=== PATIENT | male | born 1950 | race Caucasian/White ===

== ENCOUNTER 2019-04-27 13:14 | Emergency (ER) | payer OTHER ==
[2019-04-27] MEDS ORDERED: DIPHTH,PERTUSS(ACELL),TET 0.5 ML DISP.SYRIN IM ONE ×3 (14:17→15:08)
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
[2019-04-27] MEDS ORDERED: ACETAMINOPHEN 325 MG TABLET (FP) PO ONE (14:58)
[2019-04-27 15:30] VITALS: BP 140/75; PULSE 82; TEMP 98.1; BMI 22.7
== END 2019-04-27 15:41 | disposition home or self-care (01) ==
LOC: JER 13:14
PROC: 3E0234Z Introduction of Serum, Toxoid and Vaccine into Muscle, Percutaneous Approach (ICD-10-PCS; principal; 2019-04-27)
DX: S00.81XA Abrasion of other part of head, initial encounter (principal); Y04.2XXA Assault by strike against or bumped into by another person, initial encounter; Y93.89 Activity, other specified; Y92.512 Supermarket, store or market as the place of occurrence of the external cause; Y99.8 Other external cause status; G40.909 Epilepsy, unspecified, not intractable, without status epilepticus; F03.90 Unspecified dementia, unspecified severity, without behavioral disturbance, psychotic disturbance, mood disturbance, and anxiety; F10.11 Alcohol abuse, in remission
CPT/HCPCS: 70450-TC; 90715; 99281-25

== ENCOUNTER 2020-07-16 17:03 | Emergency (ER) | payer OTHER ==
[2020-07-16 17:09] VITALS: BMI 24.4
[2020-07-16 18:42] LABS: BASO % 0.9 % (0-2.0); EOS % 1.9 % (0-4.5); HEMATOCRIT 36.9 % (35.4-49); HEMOGLOBIN 12.4 GM/dL (11.7-16.9); LYMPH % 33.8 % (8-40); MCH 31.5 pg (25.7-33.7); MCHC 33.6 g/dl (32.0-35.9); MEAN CELL VOLUME 93.8 fl (80-96); MEAN PLT VOLUME 7.9 fl (7.5-11.1); MONO % 17.1 % (3.8-10.2); NEUT % 46.3 % (42.8-82.8); PLATELET COUNT 165 K/MM3 (134-434); RBC 3.94 M/mm3 (4.00-5.60); RDW 16.4 % (11.9-15.9); WHITE BLOOD COUNT 5.5 K/mm3 (4.0-10.0)
[2020-07-16 19:06] LABS: POTASSIUM 4.2 mmol/L (3.5-5.1)
[2020-07-16 19:07] LABS: CALCIUM 8.6 mg/dL (8.5-10.1)
[2020-07-16 19:08] LABS: ALBUMIN 3.1 g/dl (3.4-5.0); BLOOD UREA NITROGEN 15.2 mg/dL (7-18)
[2020-07-16 19:11] LABS: CREATININE 0.8 mg/dL (0.55-1.3)
[2020-07-16 19:13] LABS: BILIRUBIN,TOTAL 0.3 mg/dL (0.2-1); TOT PROT 6.5 g/dl (6.4-8.2)
[2020-07-16 21:31] LABS: EPI CELLS 3 /uL (0-25.1); HYALINE CASTS 0 /uL (0-3.1); URINE APPEARANCE CLEAR; URINE BACTERIA 20 /uL (0-1359); URINE BILIRUBIN NEGATIVE (NEGATIVE); URINE COLOR YELLOW; URINE GLUCOSE (UA) NEGATIVE (NEGATIVE); URINE KETONE NEGATIVE (NEGATIVE); URINE LEUK ESTERASE TRACE (NEGATIVE); URINE NITRITE NEGATIVE (NEGATIVE); URINE PROTEIN NEGATIVE (NEGATIVE); URINE UROBILINOGEN 0.2 mg/dL (0.2-1.0); URINE WBC 19 /uL (0-25.8)
[2020-07-16 22:26] VITALS: BP 129/53; PULSE 64; TEMP 98.7
[2020-07-16] MEDS ORDERED: QUEtiapine FUMARATE 300 MG TABLET PO ONE (23:02)
[2020-07-16] MEDS ORDERED: DIVALPROEX SODIUM 250 MG TABLET E.C. PO ONE (23:02)
[2020-07-16] MEDS ORDERED: QUEtiapine FUMARATE 100 MG TABLET (FP) ONE (23:18)
[2020-07-16 23:53] LABS: URINE RBC 227.9 /uL (0-23.9)
== END 2020-07-17 05:47 | disposition home or self-care (01) ==
LOC: JER 17:03
DX: G40.89 Other seizures (principal)
CPT/HCPCS: 36415; 71045-TC-FY; 80053; 80164; 81003; 85025; 87086; 93005; 93010; 99285-25; C9803; U0003

== ENCOUNTER 2022-02-07 19:50 | Inpatient (IN) | payer OTHER ==
[2022-02-07 20:11] VITALS: BMI 24.1
[2022-02-07 20:31] LABS: BASO % 1.4 % (0-2.0); HEMATOCRIT 41.9 % (35.4-49); HEMOGLOBIN 13.9 GM/dL (11.7-16.9); LYMPH % 23.3 % (8-40); MCH 30.6 pg (25.7-33.7); MCHC 33.2 g/dl (32.0-35.9); MEAN CELL VOLUME 92.1 fl (80-96); MEAN PLT VOLUME 7.7 fl (7.5-11.1); MONO % 12.5 % (3.8-10.2); NEUT % 60.8 % (42.8-82.8); PLATELET COUNT 303 10^3/uL (134-434); RBC 4.55 M/mm3 (4.00-5.60); RDW 13.6 % (11.9-15.9); WHITE BLOOD COUNT 8.3 K/mm3 (4.0-10.0)
[2022-02-07 20:36] LABS: EPI CELLS 12 /uL (0-25.1); HYALINE CASTS 1 /uL (0-3.1); PH,URINE 5.5 (5.0-8.0); URINE APPEARANCE CLEAR; URINE BACTERIA 5 /uL (0-1359); URINE BILIRUBIN NEGATIVE (NEGATIVE); URINE COLOR YELLOW; URINE GLUCOSE (UA) NEGATIVE (NEGATIVE); URINE KETONE NEGATIVE (NEGATIVE); URINE LEUK ESTERASE NEGATIVE (NEGATIVE); URINE NITRITE NEGATIVE (NEGATIVE); URINE PROTEIN 2+ (NEGATIVE); URINE RBC 22 /uL (0-23.9); URINE UROBILINOGEN 0.2 mg/dL (0.2-1.0); URINE WBC 13 /uL (0-25.8)
[2022-02-07 20:38] LABS: INR 1.03 (0.83-1.09); PROTHROMBIN TIME (PATIENT) 11.9 SEC (9.7-13.0)
[2022-02-07 20:40] LABS: ACTIVATED PTT 29.3 SECONDS (25.2-36.5)
[2022-02-07 20:50] LABS: CALCIUM 9.4 mg/dL (8.5-10.1)
[2022-02-07 20:51] LABS: ALBUMIN 4.2 g/dl (3.4-5.0); BLOOD UREA NITROGEN 20.9 mg/dL (7-18)
[2022-02-07 20:54] LABS: CREATININE 1.4 mg/dL (0.55-1.3)
[2022-02-07 20:55] LABS: BILIRUBIN,TOTAL 0.6 mg/dL (0.2-1)
[2022-02-07 20:56] LABS: TOT PROT 7.9 g/dl (6.4-8.2)
[2022-02-07 21:07] LABS: LACTIC ACID 9.5 mmol/L (0.4-2.0)
[2022-02-07] MEDS ORDERED: VALPROATE SODIUM 500 MG/5 ML VIAL IVPB ONE (21:15)
[2022-02-07] MEDS ORDERED: levETIRAcetam 500 MG/5 ML INJECTION VIAL IVPB ONE ×2 (21:17→22:03)
[2022-02-07] MEDS ORDERED: QUEtiapine FUMARATE 25 MG TABLET PO ONE (23:27)
[2022-02-07] MEDS ORDERED: QUEtiapine FUMARATE 25 MG TABLET ONE (23:48)
[2022-02-08] MEDS ORDERED: LACTATED RINGERS SOLUTION 1000 ML INFUS.BAG IV ONE (01:12)
[2022-02-08] MEDS ORDERED: LORazepam 2 MG/ML SDV VIAL IVPUSH PRN (01:43)
[2022-02-08 09:10] LABS: BASO % 0.6 % (0-2.0); EOS % 1.1 % (0-4.5); HEMATOCRIT 38.3 % (35.4-49); HEMOGLOBIN 12.8 GM/dL (11.7-16.9); LYMPH % 21.1 % (8-40); MCH 30.6 pg (25.7-33.7); MCHC 33.3 g/dl (32.0-35.9); MEAN CELL VOLUME 91.8 fl (80-96); MEAN PLT VOLUME 7.5 fl (7.5-11.1); MONO % 11.8 % (3.8-10.2); NEUT % 65.4 % (42.8-82.8); PLATELET COUNT 256 10^3/uL (134-434); RBC 4.17 M/mm3 (4.00-5.60); RDW 13.7 % (11.9-15.9); WHITE BLOOD COUNT 10.3 K/mm3 (4.0-10.0)
[2022-02-08 09:31] LABS: BLOOD UREA NITROGEN 17.6 mg/dL (7-18); CALCIUM 8.6 mg/dL (8.5-10.1); MAGNESIUM 2.3 mg/dL (1.8-2.4)
[2022-02-08 09:33] LABS: PHOSPHOROUS 3.6 mg/dL (2.5-4.9)
[2022-02-08 09:35] LABS: BILIRUBIN,TOTAL 0.5 mg/dL (0.2-1); TOT PROT 6.1 g/dl (6.4-8.2)
[2022-02-08 09:37] LABS: ALBUMIN 3.4 g/dl (3.4-5.0)
[2022-02-08] MEDS ORDERED: levETIRAcetam 500 MG TABLET (FP) PO SCH (10:00)
[2022-02-08] MEDS ORDERED: LISINOPRIL 20 MG TABLET ONE (10:31)
[2022-02-08] MEDS ORDERED: QUEtiapine FUMARATE 25 MG TABLET ONE (10:31)
[2022-02-08] MEDS ORDERED: levETIRAcetam 500 MG TABLET (FP) PO ONE (10:31)
[2022-02-08] MEDS ORDERED: GABAPENTIN 300 MG CAPSULE ONE (10:32)
[2022-02-08] MEDS ORDERED: ENOXAPARIN NA (PORCINE) 40 MG/0.4 ML DISP.SYRIN SQ ONE (10:32)
[2022-02-08] MEDS: LISINOPRIL 20 MG TABLET PO SCH (10:48)
[2022-02-08] MEDS: ENOXAPARIN NA (PORCINE) 40 MG/0.4 ML DISP.SYRIN SQ SCH (10:48)
[2022-02-08] MEDS: QUEtiapine FUMARATE 25 MG TABLET PO SCH ×2 (10:48→22:33)
[2022-02-08] MEDS: GABAPENTIN 300 MG CAPSULE PO SCH ×2 (10:48→22:42)
[2022-02-08] MEDS ORDERED: TAMSULOSIN HCL 0.4 MG CAP PO ONE (16:10)
[2022-02-08] MEDS ORDERED: TAMSULOSIN HCL 0.4 MG CAP ONE (16:40)
[2022-02-08] MEDS ORDERED: NICOTINE 14 MG/24 HOURS TOPICAL PATCH TD ONE (17:14)
[2022-02-08] MEDS ORDERED: NICOTINE 14 MG/24 HOURS TOPICAL PATCH TD SCH (17:15)
[2022-02-08] MEDS ORDERED: ACETAMINOPHEN 325 MG TABLET (FP) PO PRN (17:32)
[2022-02-08] MEDS ORDERED: ASPIRIN 81 MG CHEWABLE TABLETS ONE (18:31)
[2022-02-08] MEDS: ASPIRIN 81 MG CHEWABLE TABLETS PO SCH (18:35)
[2022-02-08] MEDS ORDERED: MELATONIN 5 MG TABLETS PO PRN (22:00)
[2022-02-08] MEDS ORDERED: AMANTADINE HCL 100 MG TABLET PO SCH (22:00)
[2022-02-08] MEDS: SODIUM CHLORIDE NASAL SPRAY 44 ML BOTTLE NS SCH (22:33)
[2022-02-08] MEDS: ATORVASTATIN CA 10 MG TABLET (FP) PO SCH (22:33)
[2022-02-09 09:18] LABS: MAGNESIUM 2.2 mg/dL (1.8-2.4)
[2022-02-09] MEDS: ENOXAPARIN NA (PORCINE) 40 MG/0.4 ML DISP.SYRIN SQ SCH (09:24)
[2022-02-09] MEDS: levETIRAcetam 500 MG TABLET (FP) PO SCH ×2 (09:24→21:15)
[2022-02-09] MEDS: QUEtiapine FUMARATE 25 MG TABLET PO SCH ×2 (09:25→21:15)
[2022-02-09] MEDS: LISINOPRIL 20 MG TABLET PO SCH (09:25)
[2022-02-09] MEDS: CYANOCOBALAMIN 1,000 MCG TABLET (FP) PO SCH (09:25)
[2022-02-09] MEDS: THIAMINE HCL 100 MG TABLET (FP) PO SCH (09:25)
[2022-02-09] MEDS: ASPIRIN 81 MG CHEWABLE TABLETS PO SCH (09:26)
[2022-02-09] MEDS: SODIUM CHLORIDE NASAL SPRAY 44 ML BOTTLE NS SCH ×2 (10:18→21:15)
[2022-02-09 14:08] LABS: CALCIUM 8.9 mg/dL (8.5-10.1)
[2022-02-09 14:09] LABS: BLOOD UREA NITROGEN 13.4 mg/dL (7-18)
[2022-02-09 14:17] LABS: N-TERMINAL BNP 1872.6 pg/ml (5-125)
[2022-02-09 19:31] LABS: EPI CELLS 1 /uL (0-25.1); HYALINE CASTS 0 /uL (0-3.1); PH,URINE 6.5 (5.0-8.0); URINE APPEARANCE CLEAR; URINE BACTERIA 2 /uL (0-1359); URINE BILIRUBIN NEGATIVE (NEGATIVE); URINE COLOR YELLOW; URINE GLUCOSE (UA) NEGATIVE (NEGATIVE); URINE KETONE NEGATIVE (NEGATIVE); URINE LEUK ESTERASE NEGATIVE (NEGATIVE); URINE NITRITE NEGATIVE (NEGATIVE); URINE PROTEIN NEGATIVE (NEGATIVE); URINE RBC 69 /uL (0-23.9); URINE WBC 1 /uL (0-25.8)
[2022-02-09] MEDS: ATORVASTATIN CA 10 MG TABLET (FP) PO SCH (21:15)
[2022-02-09] MEDS: GABAPENTIN 300 MG CAPSULE PO SCH (21:15)
[2022-02-09] MEDS: AMANTADINE HCL 100 MG TABLET PO SCH (21:15)
[2022-02-09] MEDS ORDERED: AMANTADINE HCL 100 MG TABLET PO SCH (22:00)
[2022-02-10 08:32] LABS: BASO % 1.1 % (0-2.0); EOS % 2.4 % (0-4.5); HEMATOCRIT 40.8 % (35.4-49); HEMOGLOBIN 13.5 GM/dL (11.7-16.9); LYMPH % 22.7 % (8-40); MCH 30.3 pg (25.7-33.7); MCHC 33.2 g/dl (32.0-35.9); MEAN CELL VOLUME 91.5 fl (80-96); MEAN PLT VOLUME 7.9 fl (7.5-11.1); MONO % 13.6 % (3.8-10.2); NEUT % 60.2 % (42.8-82.8); PLATELET COUNT 237 10^3/uL (134-434); RBC 4.46 M/mm3 (4.00-5.60); RDW 13.3 % (11.9-15.9); WHITE BLOOD COUNT 8.3 K/mm3 (4.0-10.0)
[2022-02-10 09:00] LABS: CALCIUM 8.8 mg/dL (8.5-10.1)
[2022-02-10 09:01] LABS: ALBUMIN 3.6 g/dl (3.4-5.0); BLOOD UREA NITROGEN 13.1 mg/dL (7-18)
[2022-02-10 09:04] LABS: CREATININE 0.9 mg/dL (0.55-1.3)
[2022-02-10 09:06] LABS: TOT PROT 6.6 g/dl (6.4-8.2)
[2022-02-10] MEDS: QUEtiapine FUMARATE 25 MG TABLET PO SCH ×2 (09:47→21:13)
[2022-02-10] MEDS: levETIRAcetam 500 MG TABLET (FP) PO SCH ×2 (09:47→21:13)
[2022-02-10] MEDS: THIAMINE HCL 100 MG TABLET (FP) PO SCH (09:47)
[2022-02-10] MEDS: ASPIRIN 81 MG CHEWABLE TABLETS PO SCH (09:47)
[2022-02-10] MEDS: ENOXAPARIN NA (PORCINE) 40 MG/0.4 ML DISP.SYRIN SQ SCH (09:48)
[2022-02-10] MEDS: GABAPENTIN 300 MG CAPSULE PO SCH ×2 (09:48→21:12)
[2022-02-10] MEDS: CYANOCOBALAMIN 1,000 MCG TABLET (FP) PO SCH (09:48)
[2022-02-10] MEDS: LISINOPRIL 20 MG TABLET PO SCH (09:48)
[2022-02-10] MEDS: AMANTADINE HCL 100 MG TABLET PO SCH ×3 (09:49→21:14)
[2022-02-10] MEDS: SODIUM CHLORIDE NASAL SPRAY 44 ML BOTTLE NS SCH ×2 (09:50→21:13)
[2022-02-10] MEDS: ATORVASTATIN CA 10 MG TABLET (FP) PO SCH (21:13)
[2022-02-11] MEDS: AMANTADINE HCL 100 MG TABLET PO SCH ×2 (06:25→14:21)
[2022-02-11 07:14] LABS: BASO % 1.2 % (0-2.0); EOS % 3.1 % (0-4.5); HEMATOCRIT 41.6 % (35.4-49); HEMOGLOBIN 14.1 GM/dL (11.7-16.9); LYMPH % 30.5 % (8-40); MCH 30.8 pg (25.7-33.7); MCHC 33.9 g/dl (32.0-35.9); MEAN CELL VOLUME 90.8 fl (80-96); MEAN PLT VOLUME 7.9 fl (7.5-11.1); MONO % 13.8 % (3.8-10.2); NEUT % 51.4 % (42.8-82.8); PLATELET COUNT 255 10^3/uL (134-434); RBC 4.58 M/mm3 (4.00-5.60); RDW 13.4 % (11.9-15.9); WHITE BLOOD COUNT 6.8 K/mm3 (4.0-10.0)
[2022-02-11 07:39] LABS: BLOOD UREA NITROGEN 12.1 mg/dL (7-18); CALCIUM 8.9 mg/dL (8.5-10.1)
[2022-02-11] MEDS ORDERED: TAMSULOSIN HCL 0.4 MG CAP PO SCH (08:30)
[2022-02-11 09:50] VITALS: RESP 18
[2022-02-11] MEDS: LISINOPRIL 20 MG TABLET PO SCH (09:51)
[2022-02-11] MEDS: GABAPENTIN 300 MG CAPSULE PO SCH (09:51)
[2022-02-11] MEDS: ENOXAPARIN NA (PORCINE) 40 MG/0.4 ML DISP.SYRIN SQ SCH (09:51)
[2022-02-11] MEDS: CYANOCOBALAMIN 1,000 MCG TABLET (FP) PO SCH (09:51)
[2022-02-11] MEDS: QUEtiapine FUMARATE 25 MG TABLET PO SCH (09:51)
[2022-02-11] MEDS: levETIRAcetam 500 MG TABLET (FP) PO SCH (09:51)
[2022-02-11] MEDS: ASPIRIN 81 MG CHEWABLE TABLETS PO SCH (09:51)
[2022-02-11] MEDS: THIAMINE HCL 100 MG TABLET (FP) PO SCH (09:51)
[2022-02-11] MEDS: SODIUM CHLORIDE NASAL SPRAY 44 ML BOTTLE NS SCH (14:38)
[2022-02-11 15:06] VITALS: BP 115/52; PULSE 63; TEMP 98.6
== END 2022-02-11 17:14 | disposition home or self-care (01) | DRG 101 ==
LOC: JER 19:50 → JERBED 21:41 → OBSVTOIN 02-08 01:34 → J4S 02-08 21:02
PROVIDERS: ADMIT Internal Medicine; ATTEND Internal Medicine
DX: R56.9 Unspecified convulsions (principal); N17.9 Acute kidney failure, unspecified; I24.8 Other forms of acute ischemic heart disease; E87.20 Acidosis, unspecified; I10 Essential (primary) hypertension; D64.9 Anemia, unspecified; F20.9 Schizophrenia, unspecified; G20 Parkinson's disease; G62.9 Polyneuropathy, unspecified; G93.89 Other specified disorders of brain; F17.210 Nicotine dependence, cigarettes, uncomplicated; E78.5 Hyperlipidemia, unspecified
CPT/HCPCS: 36415; 70450-TC; 71045-TC-FY; 72125-TC; 76775-TC; 80048; 80053; 80061; 80164; 80177; 81003; 82550; 82553; 82570; 83036; 83605; 83735; 83880; 84100; 84300; 84443; 84484; 85025; 85379; 85610; 85730; 86140; 87086; 93005; 93010; 93306-TC; 97116-GP; 97162-GP; 99285-25; C9803-CS; G0378; U0003; U0005

== ENCOUNTER 2022-04-03 05:10 | Emergency (ER) | payer OTHER ==
[2022-04-03 05:40] VITALS: RESP 20; BMI 27.4
[2022-04-03 07:01] VITALS: TEMP 98.9
[2022-04-03] MEDS ORDERED: AMANTADINE HCL 100 MG TABLET PO ONE (09:54)
[2022-04-03] MEDS ORDERED: GABAPENTIN 300 MG CAPSULE PO ONE (09:55)
[2022-04-03] MEDS ORDERED: TAMSULOSIN HCL 0.4 MG CAP PO ONE (09:55)
[2022-04-03] MEDS ORDERED: LISINOPRIL 20 MG TABLET PO ONE (09:57)
[2022-04-03] MEDS ORDERED: levETIRAcetam 500 MG TABLET (FP) PO ONE ×2 (10:00→10:08)
[2022-04-03] MEDS ORDERED: ASPIRIN 81 MG CHEWABLE TABLETS PO ONE (10:00)
[2022-04-03] MEDS ORDERED: LISINOPRIL 20 MG TABLET ONE (10:08)
[2022-04-03] MEDS ORDERED: TAMSULOSIN HCL 0.4 MG CAP ONE (10:08)
[2022-04-03] MEDS ORDERED: ASPIRIN 81 MG CHEWABLE TABLETS ONE (10:08)
[2022-04-03] MEDS ORDERED: GABAPENTIN 300 MG CAPSULE ONE (10:08)
[2022-04-03 10:27] VITALS: BP 146/68; PULSE 69
[2022-04-03] MEDS ORDERED: QUEtiapine FUMARATE 50 MG TABLET PO ONE (10:34)
[2022-04-03] MEDS ORDERED: QUEtiapine FUMARATE 25 MG TABLET ONE (10:52)
== END 2022-04-03 11:52 | disposition home or self-care (01) ==
LOC: JER 05:10
DX: R25.1 Tremor, unspecified (principal)
CPT/HCPCS: 0241U-QW; 99283-25

== ENCOUNTER 2023-11-23 22:50 | Inpatient (IN) | payer OTHER ==
[2023-11-23] MEDS: SODIUM CHLORIDE 1,000 ML IV SCH (23:36)
[2023-11-23 23:42] LABS: EOS % 3.3 % (0-4.5); HEMATOCRIT 36.8 % (35.4-49); HEMOGLOBIN 12.4 GM/dL (11.7-16.9); LYMPH % 14.2 % (8-40); MCH 29.8 pg (25.7-33.7); MCHC 33.6 g/dl (32.0-35.9); MEAN CELL VOLUME 88.8 fl (80-96); MEAN PLT VOLUME 6.6 fl (7.5-11.1); MONO % 17.3 % (3.8-10.2); NEUT % 64.2 % (42.8-82.8); PLATELET COUNT 242 10^3/uL (134-434); RBC 4.15 M/mm3 (4.00-5.60); RDW 14.6 % (11.9-15.9); WHITE BLOOD COUNT 6.8 K/mm3 (4.0-10.0)
[2023-11-23 23:48] LABS: INR 1.14 (0.83-1.09); PROTHROMBIN TIME (PATIENT) 13.1 SEC (9.7-13.0)
[2023-11-23 23:51] LABS: ACTIVATED PTT 30.8 SECONDS (25.2-36.5)
[2023-11-24] LABS: POTASSIUM 4.2 mmol/L (3.5-5.1)
[2023-11-24 00:01] LABS: CALCIUM 8.2 mg/dL (8.5-10.1)
[2023-11-24 00:03] LABS: BLOOD UREA NITROGEN 19.9 mg/dL (7-18)
[2023-11-24 00:07] LABS: TOT PROT 6.3 g/dl (6.4-8.2)
[2023-11-24 00:08] LABS: BILIRUBIN,TOTAL 0.7 mg/dL (0.2-1)
[2023-11-24] MEDS ORDERED: PIPERACILLIN/TAZOB 4.5 GM 4.5 GM/100 ML BAG IVPB ONE (02:58)
[2023-11-24] MEDS: PIPERACILLIN/TAZOB 4.5 GM 4.5 GM in DEXTROSE 5%-WATER 100 ML IVPB SCH (03:05)
[2023-11-24] MEDS ORDERED: VANCOMYCIN 1 GRAM (PRE-DOCKED) 1,000 MG/250 ML BAG IVPB ONE (03:06)
[2023-11-24] MEDS: VANCOMYCIN/WATER FOR INJ (PEG) 1,000 MG/200 ML BAG IVPB SCH (03:15)
[2023-11-24 07:36] LABS: BASO % 1.4 % (0-2.0); EOS % 5.3 % (0-4.5); HEMATOCRIT 34.3 % (35.4-49); HEMOGLOBIN 11.7 GM/dL (11.7-16.9); LYMPH % 17.4 % (8-40); MCH 30.9 pg (25.7-33.7); MCHC 34.1 g/dl (32.0-35.9); MEAN CELL VOLUME 90.5 fl (80-96); MEAN PLT VOLUME 6.9 fl (7.5-11.1); MONO % 19.4 % (3.8-10.2); NEUT % 56.5 % (42.8-82.8); PLATELET COUNT 236 10^3/uL (134-434); RBC 3.79 M/mm3 (4.00-5.60); RDW 14.4 % (11.9-15.9); WHITE BLOOD COUNT 5.5 K/mm3 (4.0-10.0)
[2023-11-24 07:52] LABS: POTASSIUM 4.2 mmol/L (3.5-5.1)
[2023-11-24 07:57] LABS: BLOOD UREA NITROGEN 19.6 mg/dL (7-18); CALCIUM 8.1 mg/dL (8.5-10.1)
[2023-11-24 08:01] LABS: CREATININE 0.9 mg/dL (0.55-1.3)
[2023-11-24] MEDS ORDERED: DEXAMETHASONE SOD PHOSPHATE 4 MG/1 ML VIAL IVPUSH ONE (08:16)
[2023-11-24 09:46] LABS: MAGNESIUM 2.3 mg/dL (1.8-2.4)
[2023-11-24 09:49] LABS: PHOSPHOROUS 5.4 mg/dL (2.5-4.9)
[2023-11-24] MEDS: DEXAMETHASONE SOD PHOSPHATE 4 MG/1 ML VIAL IVPUSH ONE (10:51)
[2023-11-24] MEDS: levETIRAcetam 500 MG/5 ML INJECTION VIAL IVPB SCH (10:52)
[2023-11-24] MEDS: levETIRAcetam 500 MG TABLET (FP) PO SCH (11:02)
[2023-11-24] MEDS: REMDESIVIR 200 MG in SODIUM CHLORIDE 250 ML IVPB ONE (11:02)
[2023-11-24 11:40] LABS: N-TERMINAL BNP 151.5 pg/ml (5-125)
[2023-11-24] MEDS: CEFTRIAXONE 1 GM in DEXTROSE 5%-WATER - 50 ML IVPB SCH (12:35)
[2023-11-24] MEDS: D5-1/2NS+10 MEQ KCL - 10 MEQ/1,000 ML INFUS.BAG IV SCH (14:27)
[2023-11-24 15:51] LABS: PH,URINE 5.5 (5.0-8.0); URINE APPEARANCE CLEAR; URINE BILIRUBIN NEGATIVE (NEGATIVE); URINE COLOR YELLOW; URINE GLUCOSE (UA) NEGATIVE (NEGATIVE); URINE KETONE TRACE (NEGATIVE)
[2023-11-24 15:52] LABS: URINE LEUK ESTERASE NEGATIVE (NEGATIVE); URINE NITRITE NEGATIVE (NEGATIVE); URINE PROTEIN NEGATIVE (NEGATIVE); URINE UROBILINOGEN 0.2 mg/dL (0.2-1.0)
[2023-11-25] MEDS: QUEtiapine FUMARATE 25 MG TABLET PO ONE (01:02)
[2023-11-25 06:34] LABS: BASO % 0.2 % (0-2.0); HEMATOCRIT 34.7 % (35.4-49); HEMOGLOBIN 12.2 GM/dL (11.7-16.9); LYMPH % 11.9 % (8-40); MCH 31.2 pg (25.7-33.7); MEAN PLT VOLUME 6.8 fl (7.5-11.1); MONO % 7.4 % (3.8-10.2); NEUT % 80.5 % (42.8-82.8); PLATELET COUNT 267 10^3/uL (134-434); RDW 13.8 % (11.9-15.9); WHITE BLOOD COUNT 8.7 K/mm3 (4.0-10.0)
[2023-11-25 06:56] LABS: POTASSIUM 3.9 mmol/L (3.5-5.1)
[2023-11-25 06:58] LABS: CALCIUM 8.4 mg/dL (8.5-10.1)
[2023-11-25 06:59] LABS: ALBUMIN 2.8 g/dl (3.4-5.0); BLOOD UREA NITROGEN 14.1 mg/dL (7-18); MAGNESIUM 2.3 mg/dL (1.8-2.4)
[2023-11-25 07:02] LABS: CREATININE 0.8 mg/dL (0.55-1.3)
[2023-11-25 07:03] LABS: BILIRUBIN,TOTAL 0.4 mg/dL (0.2-1); TOT PROT 6.2 g/dl (6.4-8.2)
[2023-11-25] MEDS: VANCOMYCIN 1,000 MG in DEXTROSE 5%-WATER - 250 ML IVPB SCH (07:22)
[2023-11-25] MEDS: PIPERACILLIN/TAZOB 4.5 GM 4.5 GM in DEXTROSE 5%-WATER 100 ML IVPB SCH (07:22)
[2023-11-25] MEDS: DEXAMETHASONE SOD PHOSPHATE 10 MG/1 ML VIAL IVPUSH SCH (10:41)
[2023-11-25] MEDS: REMDESIVIR 100 MG in SODIUM CHLORIDE 250 ML IVPB SCH (12:04)
[2023-11-25] MEDS ORDERED: ACETAMINOPHEN 325 MG TABLET (FP) PO PRN (12:40)
[2023-11-25] MEDS: LISINOPRIL 20 MG TABLET PO SCH (14:45)
[2023-11-25] MEDS: VITAMINS A AND D TOPICAL OINTMENT TP SCH (17:46)
[2023-11-25] MEDS: AMANTADINE HCL 100 MG TABLET PO SCH (17:47)
[2023-11-25] MEDS ORDERED: PATIENT'S OWN MEDICATION (NON-FORMULARY) (Melatonin [Melatonin] 3 MG Tablet) PO SCH (22:00)
[2023-11-25] MEDS: MELATONIN 5 MG, MELATONIN 4 MG PO SCH (22:22)
[2023-11-25] MEDS: ATORVASTATIN CA 10 MG TABLET (FP) PO SCH (22:22)
[2023-11-25] MEDS: QUEtiapine FUMARATE 25 MG TABLET PO SCH (22:22)
[2023-11-25] MEDS: SODIUM CHLORIDE NASAL SPRAY 44 ML BOTTLE NS SCH (22:41)
[2023-11-26 08:49] LABS: BASO % 0.1 % (0-2.0); HEMATOCRIT 33.7 % (35.4-49); HEMOGLOBIN 11.4 GM/dL (11.7-16.9); LYMPH % 8.4 % (8-40); MCH 29.9 pg (25.7-33.7); MCHC 33.9 g/dl (32.0-35.9); MEAN CELL VOLUME 88.2 fl (80-96); MEAN PLT VOLUME 6.9 fl (7.5-11.1); MONO % 6.8 % (3.8-10.2); NEUT % 84.7 % (42.8-82.8); PLATELET COUNT 318 10^3/uL (134-434); RBC 3.81 M/mm3 (4.00-5.60); RDW 14.1 % (11.9-15.9); WHITE BLOOD COUNT 18.8 K/mm3 (4.0-10.0)
[2023-11-26 09:09] LABS: POTASSIUM 4.1 mmol/L (3.5-5.1)
[2023-11-26 09:12] LABS: BLOOD UREA NITROGEN 13.8 mg/dL (7-18); CALCIUM 8.5 mg/dL (8.5-10.1)
[2023-11-26 09:13] LABS: ALBUMIN 2.8 g/dl (3.4-5.0)
[2023-11-26 09:16] LABS: CREATININE 0.8 mg/dL (0.55-1.3)
[2023-11-26 09:18] LABS: BILIRUBIN,TOTAL 0.4 mg/dL (0.2-1)
[2023-11-26] MEDS: ASPIRIN 81 MG CHEWABLE TABLETS PO SCH (10:02)
[2023-11-26] MEDS: AMANTADINE HCL 100 MG TABLET PO SCH (10:03)
[2023-11-26] MEDS: QUEtiapine FUMARATE 25 MG TABLET PO SCH (21:06)
[2023-11-26] MEDS: levETIRAcetam 250 MG TABLET PO SCH (21:06)
[2023-11-27 08:55] LABS: BASO % 0.3 % (0-2.0); HEMATOCRIT 36.2 % (35.4-49); HEMOGLOBIN 12.3 GM/dL (11.7-16.9); LYMPH % 10.8 % (8-40); MCH 30.6 pg (25.7-33.7); MEAN PLT VOLUME 7.2 fl (7.5-11.1); MONO % 5.9 % (3.8-10.2); PLATELET COUNT 328 10^3/uL (134-434); RBC 4.03 M/mm3 (4.00-5.60); RDW 13.8 % (11.9-15.9)
[2023-11-27 09:17] LABS: POTASSIUM 4.1 mmol/L (3.5-5.1)
[2023-11-27 09:19] LABS: BLOOD UREA NITROGEN 19.2 mg/dL (7-18); CALCIUM 8.6 mg/dL (8.5-10.1)
[2023-11-27 09:20] LABS: ALBUMIN 2.9 g/dl (3.4-5.0)
[2023-11-27 09:23] LABS: CREATININE 0.7 mg/dL (0.55-1.3)
[2023-11-27 09:24] LABS: BILIRUBIN,TOTAL 0.3 mg/dL (0.2-1); TOT PROT 6.3 g/dl (6.4-8.2)
[2023-11-27] MEDS: DEXAMETHASONE 4 MG TABLET (FP) PO SCH (11:00)
[2023-11-28 08:47] LABS: HEMATOCRIT 38.2 % (35.4-49); HEMOGLOBIN 13.1 GM/dL (11.7-16.9); MCH 30.3 pg (25.7-33.7); MCHC 34.3 g/dl (32.0-35.9); MEAN CELL VOLUME 88.2 fl (80-96); MEAN PLT VOLUME 7.3 fl (7.5-11.1); PLATELET COUNT 371 10^3/uL (134-434); RBC 4.33 M/mm3 (4.00-5.60); RDW 13.8 % (11.9-15.9)
[2023-11-28 09:07] LABS: POTASSIUM 4.1 mmol/L (3.5-5.1)
[2023-11-28 09:10] LABS: CALCIUM 8.9 mg/dL (8.5-10.1)
[2023-11-28 09:11] LABS: BLOOD UREA NITROGEN 21.3 mg/dL (7-18)
[2023-11-28 09:17] LABS: CREATININE 0.9 mg/dL (0.55-1.3)
[2023-11-28 09:43] LABS: ANISOCYTOSIS 0; HELMET CELLS 0; HOWELL-JOLLY BODIES 0; MACROCYTOSIS 0; OVALOCYTE 0; ROULEAU 0; SICKELED CELLS 0; TARGET CELLS 0; TEAR DROP CELLS 0; TOXIC GRANULATION 0
[2023-11-29 09:19] LABS: HEMATOCRIT 38.9 % (35.4-49); HEMOGLOBIN 13.4 GM/dL (11.7-16.9); MCHC 34.5 g/dl (32.0-35.9); MEAN CELL VOLUME 86.9 fl (80-96); MEAN PLT VOLUME 7.3 fl (7.5-11.1); PLATELET COUNT 426 10^3/uL (134-434); RBC 4.48 M/mm3 (4.00-5.60); RDW 14.4 % (11.9-15.9); WHITE BLOOD COUNT 23.1 K/mm3 (4.0-10.0)
[2023-11-29 09:40] LABS: POTASSIUM 4.1 mmol/L (3.5-5.1)
[2023-11-29 09:47] LABS: BLOOD UREA NITROGEN 22.5 mg/dL (7-18)
[2023-11-29 09:49] LABS: CALCIUM 8.7 mg/dL (8.5-10.1)
[2023-11-29 09:51] LABS: CREATININE 0.9 mg/dL (0.55-1.3)
[2023-11-29 09:52] LABS: TOT PROT 6.6 g/dl (6.4-8.2)
[2023-11-29 09:54] LABS: BILIRUBIN,TOTAL 0.5 mg/dL (0.2-1)
[2023-11-29 10:49] LABS: ANISOCYTOSIS 0; HELMET CELLS 0; HOWELL-JOLLY BODIES 0; MACROCYTOSIS 0; OVALOCYTE 0; ROULEAU 0; SICKELED CELLS 0; TARGET CELLS 0; TEAR DROP CELLS 0; TOXIC GRANULATION 0
[2023-11-29 13:36] VITALS: BMI 26.6
[2023-11-29] MEDS: FLUTICASONE PROP 0.05% 16 GM NASAL SPRAY NS SCH (21:32)
[2023-11-30 08:53] LABS: HEMATOCRIT 40.1 % (35.4-49); HEMOGLOBIN 13.4 GM/dL (11.7-16.9); MCH 30.1 pg (25.7-33.7); MCHC 33.4 g/dl (32.0-35.9); MEAN CELL VOLUME 89.9 fl (80-96); MEAN PLT VOLUME 6.7 fl (7.5-11.1); PLATELET COUNT 374 10^3/uL (134-434); RBC 4.46 M/mm3 (4.00-5.60); RDW 14.2 % (11.9-15.9); WHITE BLOOD COUNT 18.2 K/mm3 (4.0-10.0)
[2023-11-30 09:23] LABS: CALCIUM 8.7 mg/dL (8.5-10.1)
[2023-11-30 09:24] LABS: BLOOD UREA NITROGEN 22.4 mg/dL (7-18)
[2023-11-30 09:27] LABS: CREATININE 0.8 mg/dL (0.55-1.3)
[2023-11-30 12:55] LABS: PLATELET ESTIMATE ADEQUATE
[2023-12-01 08:21] LABS: HEMATOCRIT 43.2 % (35.4-49); HEMOGLOBIN 14.5 GM/dL (11.7-16.9); MCHC 33.6 g/dl (32.0-35.9); MEAN CELL VOLUME 89.3 fl (80-96); MEAN PLT VOLUME 7.3 fl (7.5-11.1); PLATELET COUNT 409 10^3/uL (134-434); RBC 4.83 M/mm3 (4.00-5.60); RDW 14.5 % (11.9-15.9)
[2023-12-01 08:57] LABS: POTASSIUM 4.4 mmol/L (3.5-5.1)
[2023-12-01 09:03] LABS: CALCIUM 8.9 mg/dL (8.5-10.1)
[2023-12-01 09:04] LABS: BLOOD UREA NITROGEN 24.6 mg/dL (7-18)
[2023-12-01 09:07] LABS: CREATININE 0.9 mg/dL (0.55-1.3)
[2023-12-01 09:08] LABS: BILIRUBIN,TOTAL 0.5 mg/dL (0.2-1); TOT PROT 6.3 g/dl (6.4-8.2)
[2023-12-01 11:09] LABS: ANISOCYTOSIS 0; MACROCYTOSIS 0
[2023-12-01] MEDS: AMANTADINE HCL 100 MG TABLET PO SCH (14:04)
[2023-12-02 08:45] LABS: HEMATOCRIT 40.8 % (35.4-49); HEMOGLOBIN 14.2 GM/dL (11.7-16.9); MCH 31.2 pg (25.7-33.7); MCHC 34.9 g/dl (32.0-35.9); MEAN CELL VOLUME 89.6 fl (80-96); MEAN PLT VOLUME 7.4 fl (7.5-11.1); PLATELET COUNT 379 10^3/uL (134-434); RBC 4.56 M/mm3 (4.00-5.60); RDW 14.3 % (11.9-15.9)
[2023-12-02 11:51] LABS: ANISOCYTOSIS 0; MACROCYTOSIS 0
[2023-12-02] MEDS: LACTOBACILLUS ACIDOPHILUS 1 TABLET PO SCH (12:43)
[2023-12-04 08:40] LABS: BASO % 0.5 % (0-2.0); EOS % 1.3 % (0-4.5); HEMATOCRIT 41.9 % (35.4-49); LYMPH % 16.7 % (8-40); MCH 30.1 pg (25.7-33.7); MCHC 33.4 g/dl (32.0-35.9); MEAN CELL VOLUME 90.3 fl (80-96); MEAN PLT VOLUME 7.6 fl (7.5-11.1); MONO % 11.2 % (3.8-10.2); NEUT % 70.3 % (42.8-82.8); PLATELET COUNT 305 10^3/uL (134-434); RBC 4.64 M/mm3 (4.00-5.60); RDW 14.8 % (11.9-15.9); WHITE BLOOD COUNT 12.4 K/mm3 (4.0-10.0)
[2023-12-04 08:55] LABS: POTASSIUM 4.6 mmol/L (3.5-5.1)
[2023-12-04 09:00] LABS: ALBUMIN 2.8 g/dl (3.4-5.0); BLOOD UREA NITROGEN 18.9 mg/dL (7-18); CALCIUM 8.6 mg/dL (8.5-10.1)
[2023-12-04 09:03] LABS: CREATININE 0.8 mg/dL (0.55-1.3)
[2023-12-04 09:04] LABS: BILIRUBIN,TOTAL 0.8 mg/dL (0.2-1); TOT PROT 6.2 g/dl (6.4-8.2)
[2023-12-05] MEDS: ESCITALOPRAM OXALATE 10 MG TABLET PO SCH (09:27)
[2023-12-05] MEDS: MULTIVITAMINS (DAILY MVI) TABLET (FP) PO SCH (12:57)
[2023-12-05] MEDS: FOLIC ACID 1 MG TABLET (FP) PO SCH (12:57)
[2023-12-05] MEDS: THIAMINE 100 MG TABLET PO SCH (12:58)
[2023-12-05] MEDS: HEPARIN NA (PORCINE) 5,000 UNITS/ML 1ML VIAL SQ SCH (13:01)
[2023-12-05] MEDS ORDERED: ACETAMINOPHEN 325 MG TABLET (FP) PO PRN (18:43)
[2023-12-05] MEDS: levETIRAcetam 250 MG TABLET PO SCH (21:58)
[2023-12-05] MEDS: QUEtiapine FUMARATE 25 MG TABLET PO SCH (21:58)
[2023-12-05] MEDS: MELATONIN 5 MG, MELATONIN 4 MG PO SCH (21:59)
[2023-12-05] MEDS: ATORVASTATIN CA 10 MG TABLET (FP) PO SCH (21:59)
[2023-12-05] MEDS: SODIUM CHLORIDE NASAL SPRAY 44 ML BOTTLE NS SCH (22:52)
[2023-12-06] MEDS: LISINOPRIL 20 MG TABLET PO SCH (11:20)
[2023-12-06] MEDS: ASPIRIN 81 MG CHEWABLE TABLETS PO SCH (11:25)
[2023-12-06] MEDS: VITAMINS A AND D TOPICAL OINTMENT TP SCH (12:57)
[2023-12-07 09:54] LABS: BASO % 1.1 % (0-2.0); EOS % 1.9 % (0-4.5); HEMATOCRIT 38.4 % (35.4-49); HEMOGLOBIN 13.2 GM/dL (11.7-16.9); LYMPH % 16.2 % (8-40); MCH 30.3 pg (25.7-33.7); MCHC 34.3 g/dl (32.0-35.9); MEAN CELL VOLUME 88.2 fl (80-96); MEAN PLT VOLUME 7.7 fl (7.5-11.1); MONO % 12.6 % (3.8-10.2); NEUT % 68.2 % (42.8-82.8); PLATELET COUNT 296 10^3/uL (134-434); RBC 4.36 M/mm3 (4.00-5.60); RDW 14.8 % (11.9-15.9); WHITE BLOOD COUNT 8.4 K/mm3 (4.0-10.0)
[2023-12-07] MEDS: FAMOTIDINE 20 MG TABLET PO SCH (10:19)
[2023-12-07] MEDS: METOCLOPRAMIDE HCL 10 MG TABLET (FP) PO SCH (11:19)
[2023-12-07] MEDS: MAG HYDROX/AL HYDROX/SIMETH -MYLANTA- ORAL SUSPENSION PO PRN (14:21)
[2023-12-08] MEDS ORDERED: MAG HYDROX/AL HYDROX/SIMETH 30 ML UNIT-DOSE CUP PO PRN (00:07)
[2023-12-08 10:30] LABS: POTASSIUM 4.9 mmol/L (3.5-5.1)
[2023-12-08 10:35] LABS: CALCIUM 9.1 mg/dL (8.5-10.1)
[2023-12-08 10:36] LABS: ALBUMIN 3.1 g/dl (3.4-5.0); BLOOD UREA NITROGEN 14.7 mg/dL (7-18)
[2023-12-08 10:40] LABS: TOT PROT 6.6 g/dl (6.4-8.2)
[2023-12-09 14:50] VITALS: BP 112/59; PULSE 60; RESP 18; TEMP 98.1
== END 2023-12-09 16:50 | DRG 177 ==
LOC: JER 22:50 → JERBED 11-24 00:30 → J4S 11-24 04:25 → OBSVTOIN 11-24 11:36 → J4S 11-26 20:06 → J8W 12-05 18:28
PROVIDERS: ADMIT Internal Medicine; ATTEND Internal Medicine
PROC: XW033E5 Introduction of Remdesivir Anti-infective into Peripheral Vein, Percutaneous Approach, New Technology Group 5 (ICD-10-PCS; principal; 2023-11-24)
DX: U07.1 COVID-19 (principal); G93.41 Metabolic encephalopathy; J12.82 Pneumonia due to coronavirus disease 2019; J98.11 Atelectasis; J44.9 Chronic obstructive pulmonary disease, unspecified; I10 Essential (primary) hypertension; R09.02 Hypoxemia; R26.81 Unsteadiness on feet; F20.9 Schizophrenia, unspecified; C61 Malignant neoplasm of prostate; F10.10 Alcohol abuse, uncomplicated; F03.90 Unspecified dementia, unspecified severity, without behavioral disturbance, psychotic disturbance, mood disturbance, and anxiety; F17.210 Nicotine dependence, cigarettes, uncomplicated
CPT/HCPCS: 0241U-QW; 36415; 70450-TC; 70496-TC; 70498-TC; 70549-TC; 70551-TC; 71045-TC-FY; 80048; 80053; 80061; 80177; 81003; 82550; 83036; 83735; 83880; 84100; 84443; 84484; 85025; 85610; 85730; 86140; 86850; 86900; 86901; 87040; 87081; 87086; 87635; 87899; 93005; 93010; 93306-TC; 97116-GP; 97162-GP; 99291; G0378; J0248; J1100; J1644; Q9967